=== PATIENT | male | born 1975 | race Two or more races ===

== ENCOUNTER 2020-10-30 11:44 | Emergency (ER) | payer MEDICAID ==
[~2020-10-30] VITALS: Ht 172.7 cm; Wt 81.6 kg
--- NOTE | 2020-10-30 12:10 | NUR ---
LOWER BACK PAIN, CONSTIPATION S/P BACK SURGERY 10/28/20. PATIENT A/OX4, C/O ABDOMINAL AND BACK PAIN, PT FEELS HE CANNOT GO TO THE BATHROOM.
--- NOTE | 2020-10-30 12:33 | NUR ---
called dr silva mills. awaiting call back.
[2020-10-30] MEDS ORDERED: MORPHINE SULFATE INJ 4 MG/ML DISP.SYRIN ONE (12:38)
[2020-10-30] MEDS ORDERED: ONDANSETRON HCL/PF 4 MG/2 ML VIAL ONE (12:38)
[2020-10-30 12:41] LABS: BASOPHILS % (AUTO) 0.3 % (0.0-2.0); EOSINOPHILS % (AUTO) 0.4 % (0.0-6.0); HEMATOCRIT 43 % (39-51); HEMOGLOBIN 14.6 g/dL (13.5-17.5); LYMPHOCYTES # (AUTO) 1.6 K/uL (0.8-4.8); MEAN CORPUSCULAR HGB CONC 34 g/dl (31.0-36.0); MEAN CORPUSCULAR VOLUME 89 fL (80-96); MONOCYTES # (AUTO) 1.2 K/uL (0.1-1.30); MONOCYTES % (AUTO) 12.6 % (2.0-12.0); NEUTROPHILS # (AUTO) 6.9 K/uL (1.8-8.9); NEUTROPHILS % (AUTO) 70.7 % (43.0-81.0); PLATELET COUNT (AUTO) 243 K/uL (150-450); RED BLOOD CELL COUNT(AUTO) 4.84 MIL/uL (4.5-6.0); WHITE BLOOD COUNT (AUTO) 9.8 K/uL (4.3-11.0)
[2020-10-30] MEDS: ONDANSETRON HCL/PF 4 MG/2 ML VIAL IV ONE (12:45)
[2020-10-30] MEDS: IV NS 0.9% 1,000 ML IV ONE (12:45)
[2020-10-30] MEDS: MORPHINE SULFATE INJ 2 MG/ML DISP.SYRIN IV ONE (12:45)
[2020-10-30 12:49] LABS: CALCIUM, SERUM 8.1 mg/dL (8.5-10.1); CREATININE 0.7 mg/dL (0.6-1.3); POTASSIUM 3.8 mmol/L (3.5-5.1)
[2020-10-30 13:10] LABS: BILIRUBIN,URINE Negative (NEGATIVE); COLOR,URINE YELLOW (YELLOW); LEUKOCYTE ESTERASE ,URINE Negative (NEGATIVE); NITRITE, URINE Negative (NEGATIVE); PROTEIN,URINE Negative (NEGATIVE); UGLUCOSE Negative (NEGATIVE); UROBILINOGEN,URINE 0.2 EU/dL (0.2)
[2020-10-30] MEDS ORDERED: CT SWABBABLE VALVE TRANS SET 1 EA INFUS.SET MC ONE (13:50)
[2020-10-30] MEDS ORDERED: IOHEXOL-300 100 ML VIAL IV ONE (13:50)
[2020-10-30] MEDS ORDERED: IV NS 0.9% 250 ML IV ONE (13:50)
[2020-10-30] MEDS ORDERED: POLY17PO4 PO (14:43)
--- NOTE | 2020-10-30 15:21 | NUR ---
Patient a/ox4, breathing even and unlabored, gave rx for constipation, IV removed. Catheter intact and site benign. Pressure and 4x4 applied to site. No bleeding noted.Patient discharged to home in stable condition. Written and verbal after care instructions given. Patient verbalizes understanding of instruction.
[2020-10-30 15:48] VITALS: BP 132/72
== END 2020-10-30 15:48 | disposition home or self-care (01) ==
LOC: ER 11:45
DX: K59.00 Constipation, unspecified (principal); G89.29 Other chronic pain; M54.5 Low back pain; R94.31 Abnormal electrocardiogram [ECG] [EKG]; Z98.890 Other specified postprocedural states
CPT/HCPCS: 36415; 74177; 80048; 81003; 84484; 85025; 93005; 96361; 96374; 96375; 99285; J2270; J2405; J7030; J7050; Q9967